=== PATIENT | male | born 1960 | race Caucasian/White ===

== ENCOUNTER 2018-10-08 10:57 | Day surgery (SDC) | payer OTHER ==
[~2018-10-08 10:57] MED LIST: CEFAZOLIN 1G VIAL IVP ONE; CEFAZOLIN 2 Gram 2 GM/50 ML BAG IVPB ONE; MECLIZINE 25 MG TABLET PO ONE; VANCOMYCIN HCL 1,000 MG in DEXTROSE 5 % IN WATER 250 ML IVPB ONE; WATER STERILE FOR INJECTION 20 ML VIAL MC ONE
[2018-10-08] MEDS ORDERED: MIDAZOLAM HCL 2MG/2ML VIAL IV ONE ×2 (10:58)
[2018-10-08] MEDS ORDERED: TRANEXAMIC ACID 1,000 MG/10 ML ML IV ONE ×2 (10:58)
[2018-10-08] MEDS ORDERED: ROPIVACAINE HCL (NAROPIN) /PF 5MG/ML 20ML VIAL IV ONE (10:58)
[2018-10-08] MEDS ORDERED: DEXAMETHASONE 4 MG/ML 1ML VIAL IVP ONE (10:58)
[2018-10-08] MEDS ORDERED: KETAMINE HCL 100MG/1ML VIAL INJ ONE (10:58)
[2018-10-08] MEDS ORDERED: 0.9 % SODIUM CHLORIDE 10 ML VIAL IVP ONE (10:58)
[2018-10-08] MEDS ORDERED: GLYCOPYRROLATE 0.2 MG/ML ML IV ONE (10:58)
[2018-10-08] MEDS ORDERED: LIDOCAINE 2% MDV (20MG/ML) 20ML VIAL IV ONE (10:58)
[2018-10-08] MEDS: FAMOTIDINE 20MG TABLET PO ONE ×2 (11:30→11:38)
[2018-10-08] MEDS: METOCLOPRAMIDE 10 MG TABLET PO ONE ×4 (11:30→12:26)
[2018-10-08 12:07] LABS: ABO GROUP A; ANTIBODY SCREEN NEGATIVE (NEGATIVE); RH TYPE POSITIVE
[2018-10-08] MEDS: CELECOXIB 100 MG CAPSULE PO ONE ×2 (12:11→17:44)
[2018-10-08] MEDS ORDERED: RINGERS SOLUTION,LACTATED 1,000 ML IV ONE ×2 (14:08→14:51)
[2018-10-08] MEDS ORDERED: BUPIVACAINE 0.5% W/EPI MPF 30 ML VIAL SQ ONE (14:49)
[2018-10-08] MEDS ORDERED: CEFAZOLIN 1G VIAL IVP ONE (14:50)
[2018-10-08] MEDS ORDERED: DIPHENHYDRAMINE HCL 25 MG CAPSULE PO PRN (15:53)
[2018-10-08] MEDS ORDERED: KETOROLAC 30 MG/ML VIAL IVP PRN ×2 (15:53)
[2018-10-08] MEDS ORDERED: MAGNESIUM HYDROXIDE 30 ML UDC PO PRN (15:53)
[2018-10-08] MEDS ORDERED: NALOXONE 0.4 MG/1 ML VIAL IVP PRN (15:53)
[2018-10-08] MEDS ORDERED: BISACODYL 10 MG SUPP RC PRN (15:53)
[2018-10-08] MEDS ORDERED: HYDROMORPHONE HCL 2 MG/ML VIAL IM PRN (15:53)
[2018-10-08] MEDS ORDERED: TRAMADOL HCL 50 MG TABLET PO PRN (15:53)
[2018-10-08] MEDS ORDERED: ZOLPIDEM TARTRATE 5 MG TABLET PO PRN (15:53)
[2018-10-08] MEDS ORDERED: ACETAMINOPHEN 325 MG TAB PO PRN (15:53)
[2018-10-08] MEDS ORDERED: ONDANSETRON HCL IV 4 MG/2 ML VIAL IVP PRN (15:53)
[2018-10-08] MEDS ORDERED: AL HYDROX/MAG HYDROX 30ML UD PO PRN (15:53)
[2018-10-08] MEDS ORDERED: ACETAMINOPHEN W/ CODEINE 300MG/60MG TABLET PO PRN ×2 (15:53)
[2018-10-08] MEDS ORDERED: CEFAZOLIN 2 Gram 2 GM/50 ML BAG IVPB SCH (16:00)
[2018-10-08] MEDS: HYDROCODONE/APAP 10/325 TABLET PO PRN ×2 (18:21→19:43)
[2018-10-08] MEDS: POTASSIUM CHLORIDE/D5-0.9%NACL 20 MEQ/1,000 ML BAG IV SCH (18:55)
[2018-10-08] MEDS ORDERED: PNEUM 23-VAL ADULT IM ONE (19:16)
[2018-10-08] MEDS: CEFAZOLIN 1G VIAL IVP SCH (22:17)
[2018-10-08] MEDS: DOCUSATE SODIUM 100 MG CAPSULE PO SCH (22:23)
[2018-10-08] MEDS: METFORMIN 500 MG TABLET PO SCH (22:24)
[2018-10-09] MEDS: HYDROCODONE/APAP 10/325 TABLET PO PRN ×2 (03:24→10:31)
[2018-10-09] MEDS: POTASSIUM CHLORIDE/D5-0.9%NACL 20 MEQ/1,000 ML BAG IV SCH ×2 (03:25→10:33)
[2018-10-09] MEDS: CEFAZOLIN 1G VIAL IVP SCH ×2 (05:45→11:45)
[2018-10-09 08:28] LABS: HEMATOCRIT 41.7 % (42.0-52.0); HEMOGLOBIN 13.7 gm/dl (14.0-18.0)
[2018-10-09 08:49] LABS: BLOOD UREA NITROGEN 12 mg/dL (6-20); CREATININE 0.7 mg/dL (0.7-1.2); EST GLOMERULAR FILTRATION RATE > 60 mL/min; GLUCOSE,RANDOM 168 mg/dL (74-109)
[2018-10-09] MEDS ORDERED: RIVAROXABAN 10 MG TABLET PO SCH (10:00)
[2018-10-09] MEDS ORDERED: MULTIVITAMINS/MINERALS TABLET PO SCH (10:00)
[2018-10-09] MEDS ORDERED: LISINOPRIL 5 MG TABLET PO SCH (10:00)
[2018-10-09] MEDS ORDERED: METOPROLOL SUCC 25 MG TAB.ER PO SCH (10:00)
[2018-10-09] MEDS ORDERED: FERROUS SULFATE 325 MG TAB PO SCH (10:00)
[2018-10-09] MEDS ORDERED: SIMVASTATIN 20 MG TABLET PO SCH (10:00)
[2018-10-09] MEDS ORDERED: ASPIRIN 325 MG TAB ENTERIC-COATED PO SCH (10:00)
[2018-10-09] MEDS: METFORMIN 500 MG TABLET PO SCH (10:32)
[2018-10-09] MEDS: DOCUSATE SODIUM 100 MG CAPSULE PO SCH (10:32)
--- NOTE | 2018-10-09 11:25 | Rehab Evaluation ---
Patient Information - Patient Information Diagnosis: OA L knee Ordered Treatment: OT Evaluate and Treat Status: Initial Evaluation Surgery: Yes (L TKA) Date of Surgery: 10/08/18 Past Medical/Surgical Hx: PAST MEDICAL/SURGICAL HISTORY Past Surgical History ORIF LEFT ANKLE HERNIA REPAIRS RIGHT SHOULDER X'S 2 TONSILS C SCOPES CARDIAC CATH PMH - Respiratory Hx Respiratory Disorders Yes Hx Pneumonia Yes: 3 YRS AGO Hx Sleep Apnea Yes Hx of CPAP No Comment: HAD INFLUENZA A 2 WEEKS AGO RESOLVED PMH - Cardiovascular Hx Cardiovascular Disorders Yes Hx Abnormal EKG Yes Hx Cardiac Catheterization Yes: 2010 FALSE POSITIVE FROM IODINE USED DURING STRESS TEST Hx Chest Pain No Hx Hypertension Yes: CONTROLLED WITH MEDS Exercise Tolerance Good Comment: VERY ACTIVE JOB PMH - Neuro Hx Neurological Disorders No PMH - GI Hx Gastrointestinal Disorders No Hx Weight Loss/Weight Gain Yes: TOTAL LOSS 80 LBS OVER LAST COUPLE OF YEARS PMH - Hx Genitourinary Disorders No PMH - Endocrine Hx Endocrine Disorders Yes Hx Diabetes Yes: DX'D 8 YEARS AGO Hx of NIDDM Yes Comment: BLOOD SUGARS AROUND 110 A1C 6 PMH - Musculoskeletal Hx Musculoskeletal Disorders Yes Hx Arthritis Yes: KNEES SHOULDERS AND HANDS PMH - Psych Hx Psychiatric Problems No PMH - Hematology/Oncology Hx Hematology/Oncology Yes Disorders Hx Bruising Yes: BRUISES EASILY WHEN ON ASA Premorbid Status: Detail (Pt is a 58 y/o M with elective TKA. Indep with all I/ADLS prior to admit and was ambulating without device. Pt lives in a 2-story home with 1 step to enter without a rail and a basement bedroom and bathroom. His bathroom is equipped with an elevated toilet seat and tub/shower with shower chair, however Pt reports he will be showering at his daughter's home with a fully accessible bathroom upon DC. Pt owns a FWW.) Social History: Detail Precautions: [place], [place], Other (WBAT L LE) - Time With Patient Total Time Spent With Patient (Min): 25 (1 eval) Treatment Procedures: Detail (ot eval: low complexity) Subjective Information - Subjective Information Per Patient (ok to see per ANA Markham. Pt agreeable to OT eval.) Objective Data - Pain Pain Present: Yes Pain Scale Used: Numeric (1 - 10) ("hardly any" per Pt, not quantified) - Mental Status Patient Orientation: Oriented x3 - Visual Perception Appears within normal limits for therapeutic activities - ROM Within normal limits (R shoulder Sx x3, functional strength and ROM) - Strength/Tone Within normal limits - Coordination Appears within normal limits for therapeutic activities - Bed Mobility Independent (supine > EOB) - Transfers Independent (sit >< stand from low surfaces to FWW with good safety awareness and use of FWW) - Balance Balance Sitting: Good Balance Standing: Good - Sensation Intact - Gait Detail (Functional ambulation within bedroom with FWW and supervision progressing to indep.) - ADL's/IADL's Detail (OT educ. Pt on adaptive tech for LB dressing, Pt demos independence to don/doff brief in sitting position, reports his will assist with socks and shoes, denies educ. on AE. Educ. Pt on mod techs for kitchen, laundry, and bathroom safety at home, Pt verbalizes understanding.) Therapy Assessment - Therapy Assessment Detail (Pt demos safety and indep. with LB dressing and verbalizes safe tech for home tasks, good safety awareness throughout session. Rec DC home with spouse assist PRN when medically appropriate.) Problem List - Problem List Occupational Therapy Problem List: Detail (No further OT needs identified.) Goals - Goals Occupational Therapy Goals: No further inpatient OT needs/goals identified. DC inpatient OT. Prognosis - Prognosis Good Plan - Plan Occupational Therapy Plan: No further inpatient OT needs/goals identified. [place] inpatient OT services.
--- NOTE | 2018-10-09 15:34 | Rehab Evaluation ---
Patient Information - Patient Information Diagnosis: OA L knee Ordered Treatment: PT Evaluate and Treat Status: Initial Evaluation Surgery: Yes (L TKA) Date of Surgery: 10/08/18 Past Medical/Surgical Hx: PAST MEDICAL/SURGICAL HISTORY Past Surgical History ORIF LEFT ANKLE HERNIA REPAIRS RIGHT SHOULDER X'S 2 TONSILS C SCOPES CARDIAC CATH PMH - Respiratory Hx Respiratory Disorders Yes Hx Pneumonia Yes: 3 YRS AGO Hx Sleep Apnea Yes Hx of CPAP No Comment: HAD INFLUENZA A 2 WEEKS AGO RESOLVED PMH - Cardiovascular Hx Cardiovascular Disorders Yes Hx Abnormal EKG Yes Hx Cardiac Catheterization Yes: 2010 FALSE POSITIVE FROM IODINE USED DURING STRESS TEST Hx Chest Pain No Hx Hypertension Yes: CONTROLLED WITH MEDS Exercise Tolerance Good Comment: VERY ACTIVE JOB PMH - Neuro Hx Neurological Disorders No PMH - GI Hx Gastrointestinal Disorders No Hx Weight Loss/Weight Gain Yes: TOTAL LOSS 80 LBS OVER LAST COUPLE OF YEARS PMH - Hx Genitourinary Disorders No PMH - Endocrine Hx Endocrine Disorders Yes Hx Diabetes Yes: DX'D 8 YEARS AGO Hx of NIDDM Yes Comment: BLOOD SUGARS AROUND 110 A1C 6 PMH - Musculoskeletal Hx Musculoskeletal Disorders Yes Hx Arthritis Yes: KNEES SHOULDERS AND HANDS PMH - Psych Hx Psychiatric Problems No PMH - Hematology/Oncology Hx Hematology/Oncology Yes Disorders Hx Bruising Yes: BRUISES EASILY WHEN ON ASA Premorbid Status: Detail (Pt is a 58 y/o M with elective TKA. Indep with all I/ADLS prior to admit and was ambulating without device. Pt lives in a 2-story home with 1 step to enter without a rail and a basement bedroom and bathroom. His bathroom is equipped with an elevated toilet seat and tub/shower with shower chair, however Pt reports he will be showering at his daughter's home with a fully accessible bathroom upon DC. Pt owns a FWW.) Social History: Detail Precautions: [place], Fall, Other (WBAT L LE) - Time With Patient Total Time Spent With Patient (Min): 30 Treatment Procedures: Detail (Initial Evaluation, gait training) Subjective Information - Subjective Information Per Patient (The patient had complaints of L knee pain level 5 using 0-10 pain scale.) Objective Data - Mental Status Patient Orientation: Oriented x3 - Visual Perception Appears within normal limits for therapeutic activities - ROM Not within normal limits (The patient's L knee AROM was limited s/p surgery. All other AROM was WNL.) - Strength/Tone Not within normal limits (The patient's L LE strength was not tested s/p surgery however was functional ie: patient could complete a SLR. The patient's R LE strength was WNL.) - Bed Mobility Independent (The pt. was independent with supine to and from sit transfer and scooting up in bed.) - Transfers Independent (The patient was independent with sit to and from stand transfer.) - Balance Balance Sitting: Good Balance Standing: Good - Gait Detail (The patient ambulated with front wheeled walker a distance of 134 feet x 1 WBAT on the L LE independently. The patient ambulated on 3 stairs with use of railing and folded walker uisng proper technique with supervision for safety.) Therapy Assessment - Therapy Assessment Detail (The patient was independent with bed mobility, transfers and ambulation. The patient is discharged from inpatient PT and is to continue with Home PT.) Patient Education - Patient Education Teaching Topic: Exercise/Activity (The patient was independent with TKA HEP including heel slides, SLR, ankle pumps, gluteal sets, quad sets, hamstring sets.) Response: Return Demonstration Teaching Method: Demonstration, Handout Teaching Recipient: Patient Barriers To Learning: None Problem List - Problem List Physical Therapy Problem List: Detail (All inpatient PT goals have been met.) Occupational Therapy Problem List: Detail (No further OT needs identified.) Goals - Goals Occupational Therapy Goals: No further inpatient OT needs/goals identified. [place] inpatient OT. Prognosis - Prognosis Good Plan - Plan Physical Therapy Plan: The patient was discharged from inpatient PT and is to continue with Home PT. Occupational Therapy Plan: No further inpatient OT needs/goals identified. DC inpatient OT services.
--- NOTE | 2018-10-11 14:37 | Operative Note ---
DATE OF SERVICE: 10/08/2018. DATE OF SURGERY: 10/08/2018. PREOPERATIVE DIAGNOSIS: End-stage arthrosis of the left knee. POSTOPERATIVE DIAGNOSIS: End-stage arthrosis of the left knee. OPERATION: Cemented left total knee arthroplasty using [employer] components, with a size 7 Oxinium Jimena II femoral component, a size 7 stemmed tibial baseplate, a 9 mm lipped high-crosslinked tibial insert, and a 35 mm all plastic patella. SURGEON: Juan Cassidy MD. ANESTHESIA: Spinal. PREPARATION: ChloraPrep. INDIVIDUAL CONSIDERATIONS: None. PROCEDURE: Patient was taken to the operating room, placed supine on the operating room table. He had successful induction with spinal anesthetic. His left lower extremity was prepped and draped in the usual fashion. Patient had a midline approach to the knee. Limb was elevated. The tourniquet was inflated to 250 mmHg. Sharp dissection carried down through skin and subcutaneous tissue. Small veins were coagulated with a Bovie. A medial arthrotomy was performed, patella was everted and the knee was flexed. Patient had exposed bone in the medial and patellofemoral compartments with large osteophytes. ACL was sacrificed. Provisional anterior meniscectomies were performed, the capsule was released from the medial proximal tibia, and the fat pad was resected. The initial femoral missile control pilot hole was then made freehand. The intramedullary femoral cutting jig was placed. It was cut in 7.0 degrees of valgus and adjusted for rotation, secured with pins for a 10 mm resection. The initial transverse cut was then made. Skid guide was placed through the anterior and posterior missile control pilot holes. It was found that a size 7 would be appropriate. The anterior and posterior cuts followed by chamfer cuts were made, osteophytes removed, and a size 7 trial was placed and found to fit well. Tibia was brought forward. Remainder of the meniscal remnants were removed with the Bovie. The extraarticular tibial cutting jig was placed. It was cut in neutral with a 3 degree AP slope. It was set for a 9 mm resection keyed off the high lateral side, secured with pins. When cutting the tibia, care was taken to preserve the PCL insertion on the tibia. After removing medial osteophytes, I was able to easily fit a size 7. It was adjusted for rotation and secured with pins. With the 9 mm trial and femoral trial, there were excellent motion and stability. Ligamentous balance and rotational alignment were normal. Femoral missile control pilot holes were impacted, and the triflanged tibial stem was impacted, and these trial components were removed. Patient had a large patella, and roughly 9 mm of bone were removed freehand. I could easily fit a 35 patella, and the 3 missile control pilot holes were drilled. Tourniquet was let down briefly to get bleeders posteriorly, then placed back up again. The knee was then thoroughly irrigated out with pulsatile saline mixed with Ancef to remove visual and palpable debris. Bony surfaces were then dried. A size 7 stemmed tibial baseplate was cemented into place, followed by impaction of the 9 mm lipped tibial insert, followed by cementing in the size 7 Oxinium femur, followed by cementing in the 35 mm patella. Implant surfaces were compressed, excess cement was removed, and after the cement had set, there were excellent motion and stability. Ligamentous balance, rotational alignment, patellofemoral tracking were normal. No lateral release was required. Again, thorough irrigation. Tourniquet was let down. Hemostasis was obtained with a Bovie. The capsule was then closed with a running #2 Quill. Prior to this, I did infiltrate the subcutaneous tissue, skin, and periosteum with 30 mL of 0.5% Marcaine with epinephrine. The subcu was then closed with running 0 Quill. Skin was closed with wendy. Patient did receive a g of tranexamic acid preoperatively. I mixed a g of tranexamic acid with 30 mL of saline, injected into the knee through a sterile 18 gauge needle, and a sterile, bulky, compressive LONA-type dressing was applied. Patient tolerated the procedure well. Needle and sponge counts were correct. Estimated blood loss was 100 mL. We will check a hemoglobin in the morning. There were no complications. [facility]
== END 2018-10-09 12:45 | disposition home health service (06) ==
LOC: SUR 10:57 → MEDSURG 16:27 → SUR 10-09 12:45
PROVIDERS: ATTEND Orthopaedic Surgery
DX: M17.12 Unilateral primary osteoarthritis, left knee (principal); I10 Essential (primary) hypertension; E78.00 Pure hypercholesterolemia, unspecified; E11.9 Type 2 diabetes mellitus without complications
CPT/HCPCS: 36416; 76942; 80048; 82948; 85014; 85018; 86850; 86900; 86901; 90732; J0690; J3480; J3490; J7060; J7120

== ENCOUNTER 2018-11-19 09:09 | Day surgery (SDC) | payer OTHER ==
[~2018-11-19 09:09] MED LIST changes: +ACETAMINOPHEN 1,000 MG/100 ML BTL IVPB ONE; -CEFAZOLIN 1G VIAL IVP ONE; +CELECOXIB 100 MG CAPSULE PO ONE; +FAMOTIDINE 20MG TABLET PO ONE; +METOCLOPRAMIDE 10 MG TABLET PO ONE; +VANCOMYCIN 1GM/200ML PREMIX 1 GM/200 ML PIGGYBACK IVPB ONE; -VANCOMYCIN HCL 1,000 MG in DEXTROSE 5 % IN WATER 250 ML IVPB ONE; -WATER STERILE FOR INJECTION 20 ML VIAL MC ONE
[2018-11-19] MEDS ORDERED: EPHEDRINE SULFATE 50 MG/ML ML IV ONE (09:10)
[2018-11-19] MEDS ORDERED: FENTANYL PF 100MCG/2ML VIAL IV ONE (09:10)
[2018-11-19] MEDS ORDERED: TRANEXAMIC ACID 1,000 MG/10 ML ML IV ONE ×2 (09:10)
[2018-11-19] MEDS ORDERED: 0.9 % SODIUM CHLORIDE 10 ML VIAL IVP ONE (09:10)
[2018-11-19] MEDS ORDERED: LIDOCAINE 2% MDV (20MG/ML) 20ML VIAL IV ONE (09:10)
[2018-11-19] MEDS ORDERED: PROPOFOL 10 MG/ML VIAL IV ONE (09:10)
[2018-11-19] MEDS ORDERED: ROPIVACAINE HCL (NAROPIN) /PF 5MG/ML 20ML VIAL IV ONE (09:10)
[2018-11-19] MEDS ORDERED: DEXAMETHASONE 4 MG/ML 1ML VIAL IVP ONE (09:10)
[2018-11-19] MEDS ORDERED: MIDAZOLAM HCL 2MG/2ML VIAL IV ONE (09:10)
[2018-11-19] MEDS ORDERED: RINGERS SOLUTION,LACTATED 1,000 ML IV ONE ×3 (10:00→13:05)
[2018-11-19 10:10] LABS: ABO GROUP A; ANTIBODY SCREEN NEGATIVE (NEGATIVE); RH TYPE POSITIVE
[2018-11-19] MEDS ORDERED: BUPIVACAINE 0.5% W/EPI MPF 30 ML VIAL SQ ONE (11:27)
[2018-11-19] MEDS ORDERED: CEFAZOLIN IVPB ONE (11:31)
[2018-11-19] MEDS ORDERED: RINGERS LACTATED IVPB ONE (11:31)
[2018-11-19] MEDS ORDERED: AL HYDROX/MAG HYDROX 30ML UD PO PRN (13:01)
[2018-11-19] MEDS ORDERED: TRAMADOL HCL 50 MG TABLET PO PRN (13:01)
[2018-11-19] MEDS ORDERED: MAGNESIUM HYDROXIDE 30 ML UDC PO PRN (13:01)
[2018-11-19] MEDS ORDERED: DIPHENHYDRAMINE HCL 25 MG CAPSULE PO PRN (13:01)
[2018-11-19] MEDS ORDERED: ONDANSETRON HCL IV 4 MG/2 ML VIAL IVP PRN (13:01)
[2018-11-19] MEDS ORDERED: ZOLPIDEM TARTRATE 5 MG TABLET PO PRN (13:01)
[2018-11-19] MEDS ORDERED: KETOROLAC 30 MG/ML VIAL IVP PRN ×2 (13:01)
[2018-11-19] MEDS ORDERED: HYDROMORPHONE HCL 2 MG/ML VIAL IM PRN (13:01)
[2018-11-19] MEDS ORDERED: ACETAMINOPHEN 325 MG TAB PO PRN (13:01)
[2018-11-19] MEDS ORDERED: BISACODYL 10 MG SUPP RC PRN (13:01)
[2018-11-19] MEDS ORDERED: NALOXONE 0.4 MG/1 ML VIAL IVP PRN (13:01)
[2018-11-19] MEDS ORDERED: ACETAMINOPHEN W/ CODEINE 300MG/60MG TABLET PO PRN ×2 (13:01)
[2018-11-19] MEDS: POTASSIUM CHLORIDE/D5-0.9%NACL 20 MEQ/1,000 ML BAG IV SCH ×2 (15:25→23:11)
[2018-11-19] MEDS: HYDROCODONE/APAP 10/325 TABLET PO PRN ×3 (16:28→23:16)
--- NOTE | 2018-11-19 16:39 | Rehab Evaluation ---
Patient Information - Patient Information Diagnosis: R knee DJD Ordered Treatment: PT Evaluate and Treat Status: Initial Evaluation Surgery: Yes (R TKA) Date of Surgery: 11/19/18 Past Medical/Surgical Hx: PAST MEDICAL/SURGICAL HISTORY Past Surgical History LTKA ORIF LEFT ANKLE HERNIA REPAIRS RIGHT SHOULDER X'S 2 TONSILS C SCOPES CARDIAC CATH PMH - Respiratory Hx Respiratory Disorders Yes Hx Pneumonia Yes: 3 YRS AGO Hx Sleep Apnea Yes Hx of CPAP No Comment: HAD INFLUENZA A 2 WEEKS AGO RESOLVED PMH - Cardiovascular Hx Cardiovascular Disorders Yes Hx Abnormal EKG Yes Hx Cardiac Catheterization Yes: 2010 FALSE POSITIVE FROM IODINE USED DURING STRESS TEST Hx Chest Pain No Hx Hypertension Yes: CONTROLLED WITH MEDS Exercise Tolerance Good Comment: VERY ACTIVE JOB PMH - Neuro Hx Neurological Disorders No PMH - GI Hx Gastrointestinal Disorders No Hx Weight Loss/Weight Gain Yes: TOTAL LOSS 80 LBS OVER LAST COUPLE OF YEARS PMH - Hx Genitourinary Disorders No PMH - Endocrine Hx Endocrine Disorders Yes Hx Diabetes Yes: DX'D 8 YEARS AGO Hx of NIDDM Yes Comment: BLOOD SUGARS AROUND 110 A1C 6 PMH - Musculoskeletal Hx Musculoskeletal Disorders Yes Hx Arthritis Yes: KNEES SHOULDERS AND HANDS PMH - Psych Hx Psychiatric Problems No PMH - Hematology/Oncology Hx Hematology/Oncology Yes Disorders Hx Bruising Yes: BRUISES EASILY WHEN ON ASA Social History: Detail (The patient lives with spouse in a two story house with one step and no railing at the enterance. The patient is staying on the main floor following surgery. The bathroom is equipped with : a tub/shower combination, shower seat, elevated toilet seat and a riser seat with hand rails. The patient has a standard walker and standard cane.) Precautions: [place], Fall, Other (WBAT on the R LE.) - Time With Patient Total Time Spent With Patient (Min): 30 Treatment Procedures: Detail (Initial Evaluation low complexity, Gait training) Subjective Information - Subjective Information Per Patient (The patient had complaints of pain following ambulation but did not rate his pain using 0-10 pain scale.) Objective Data - Mental Status Patient Orientation: Oriented x3 - Visual Perception Appears within normal limits for therapeutic activities - ROM Not within normal limits (R knee AROM was limited s/p surgery. All other AROM was WFL.) - Strength/Tone Not within normal limits (The patient's R LE strength was not tested s/p however was functional ie: patient could lift LE in and out of bed. The patient's LE strength was WFL.) - Bed Mobility Independent (The patient was independent with supine to and from sit transfer and scooting up in bed.) - Transfers Independent (The patient was independent with sit to and from stand transfer.) - Balance Balance Sitting: Good Balance Standing: Good - Gait Detail (The patient ambulated with front wheeled walker WBAT on the R LE with supervision for safety only a distance of 75 feet x 1.) Therapy Assessment - Therapy Assessment Detail (The patient was independent with bed mobility and transfers and required supervision for safety only with ambulation. Feel the patient will progress well with mobility.) Problem List - Problem List Physical Therapy Problem List: Detail (Decreased R LE strength and AROM of R knee as to be expected following surgery.) Goals - Goals Physical Therapy Goals: 1) The patient will be independent with TKA HEP. 2) The patient will ambulate on stairs using proper technique with supervision for safety. 3) The patient will ambulate with appropriate assistive device household distances independently. Prognosis - Prognosis Good Plan - Plan Physical Therapy Plan: PT 1-2 sessions for gait training on levels and stairs and instruction in TKA HEP.
[2018-11-19] MEDS: CEFAZOLIN 2 Gram 2 GM/50 ML BAG IVPB SCH (17:59)
[2018-11-19] MEDS: DOCUSATE SODIUM 100 MG CAPSULE PO SCH (21:06)
[2018-11-19] MEDS: PATIENT OWN MED: METFORMIN 1000 MG PO SCH (21:07)
[2018-11-20] MEDS: CEFAZOLIN 2 Gram 2 GM/50 ML BAG IVPB SCH ×2 (02:34→11:12)
[2018-11-20] MEDS: POTASSIUM CHLORIDE/D5-0.9%NACL 20 MEQ/1,000 ML BAG IV SCH (05:12)
[2018-11-20] MEDS: HYDROCODONE/APAP 10/325 TABLET PO PRN ×2 (05:24→09:44)
[2018-11-20 06:30] LABS: HEMOGLOBIN 12.6 gm/dl (14.0-18.0)
[2018-11-20 06:44] LABS: BLOOD UREA NITROGEN 14 mg/dL (6-20); CREATININE 0.6 mg/dL (0.7-1.2); EST GLOMERULAR FILTRATION RATE > 60 mL/min; GLUCOSE,RANDOM 180 mg/dL (74-109)
--- NOTE | 2018-11-20 07:50 | Operative Note ---
DATE OF SURGERY: 11/19/2018 PREOPERATIVE DIAGNOSIS: Profound end-stage arthrosis of the right knee. POSTOPERATIVE DIAGNOSIS: Profound end-stage arthrosis of the right knee. OPERATION: Cemented right total knee arthroplasty using Bell [employer] Nephew Jimena II components with a size 7 Oxinium femur, a size 7 stemmed tibia baseplate, a 9 mm lipped highly crosslinked tibial insert, and a 35 mm all plastic patella. STAFF SURGEON: Juan Cassidy MD ANESTHESIA: Spinal. PREPARATION: Chloraprep. INDIVIDUAL CONSIDERATIONS: None. PROCEDURE: The patient was taken to the operating room, placed supine on the operating room table. He had a successful induction of a spinal anesthetic. The right lower extremity was prepped and draped in the usual fashion. The limb was elevated and tourniquet was inflated to 250 mmHg. The patient had a midline approach to the knee. Sharp dissection carried down through skin and subcutaneous tissue. Small veins were coagulated with a Bovie. A medial arthrotomy was performed. The patella was everted and the knee was flexed. The patient had exposed bone throughout. Fat pad was resected, ACL was sacrificed, and provisional anterior meniscectomies were performed. The capsule was released from the medial proximal tibia. The initial femoral airline transport pilot hole was then made freehand. The intramedullary femoral cutting jig was placed. It was cut in 7.0 degrees of valgus and adjusted for rotation and secured with pins for a 10 mm resection. The initial transverse cut was then made. The skin guide was placed in the anterior and posterior airline transport pilot holes. It was found that a size 7 would be appropriate but I had to translate it anteriorly 2 mm. The anterior and posterior cuts were made. Osteophytes removed, and a size 7 trial was placed and found to fit well. The tibia was brought forward, and the remainder of the meniscal remnants removed with a Bovie. The extraarticular tibial cutting jig was placed. It was cut in neutral with a 3-degree AP slope. It was set for a 9 mm resection keyed off the high lateral side and secured with pins. When cutting the tibia, care was taken to preserve the PCL insertion on the tibia. The patient had large osteophytes removed, and after removing them, I was able to fit a size 7 baseplate. It was adjusted for rotation and secured with pins. Using a 9 mm trial and femoral trial, there was excellent motion and stability, ligamentous balance, and rotation alignment were thought to be normal. Femoral airline transport pilot holes were impacted and tri-flange tibial stamp was impacted, and these trial components were removed. The patient had a huge patella and roughly 9 mm of bone was removed freehand. I was easily able to fit a 35 patella. The 3 airline transport pilot holes were drilled. The tourniquet was let down briefly to get bleeders posteriorly and then placed back up again. The knee was then thoroughly irrigated out with saline mixed with Ancef to remove any visual or palpable debris. Bony surfaces were then dried. A size 7 stemmed tibia baseplate was cemented into place followed by impaction of the 9 mm lipped highly crosslinked tibial insert followed by cementing in the size 7 Oxinium femur followed by cementing in the 35 mm patella. The implant surfaces were compressed, excess cement was removed. After the cement had set, there was excellent motion and stability, ligamentous balance, rotation alignment, and patellofemoral tracking were normal. No lateral release was required. Thorough irrigation again. Tourniquet was let down. Hemostasis was obtained with a Bovie. The capsule and the subcu were then infiltrated with 30 mL of 0.5% Marcaine with epinephrine. The capsule was then closed with a running #2 quill, subcu was closed in layers with running 0 quill, skin was closed with wendy. Then 1 g of tranexamic acid was mixed with 30 mL of saline and injected into the knee through a sterile 18-gauge needle, and a sterile bulky compressive LONA-type dressing was applied. The patient tolerated the procedure well. Needle and sponge counts were correct. Estimated blood loss was minimal, and he was taken back to recovery in good condition. There were no complications. JAMES
[2018-11-20] MEDS: DOCUSATE SODIUM 100 MG CAPSULE PO SCH (09:22)
[2018-11-20] MEDS: PATIENT OWN MED: METFORMIN 1000 MG PO SCH (09:23)
[2018-11-20] MEDS ORDERED: FERROUS SULFATE 325 MG TAB PO SCH (10:00)
[2018-11-20] MEDS ORDERED: FISH OIL PO SCH (10:00)
[2018-11-20] MEDS ORDERED: PATIENT OWN MED: LOVASTATIN 40 MG PO SCH (10:00)
[2018-11-20] MEDS ORDERED: PATIENT OWN MED: METOPROLOL SUCCINATE 50 MG PO SCH (10:00)
[2018-11-20] MEDS ORDERED: ASPIRIN 325 MG TAB ENTERIC-COATED PO SCH (10:00)
[2018-11-20] MEDS ORDERED: RIVAROXABAN 10 MG TABLET PO SCH (10:00)
[2018-11-20] MEDS ORDERED: PATIENT OWN MED: MULTIVITAMIN PO SCH (10:00)
[2018-11-20] MEDS ORDERED: FARXIGA 10 MG PO SCH (10:00)
[2018-11-20] MEDS ORDERED: LISINOPRIL 2.5 MG PO SCH (10:00)
--- NOTE | 2018-11-20 11:01 | Physical Therapy Tx Note ---
Physical Therapy Tx Note - Treatment Note Tolerated: Good Total Time Spent With Patient: 25 Physical Therapy Tx Note: Detail (Pt was laying in bed when PT arrived. Patient had no complaints of pain. Pt was able to transfer from sit to stand independently. Pt ambulated 134 ft with four point walker independent with weight beaing as tolerated on R. Pt descended and ascended 3 steps with use of handrail and walker for support with supervision. Pt was able to go to the b athroom independently. Pt was educated on TKA HEP ankle pumps, SLR, quad set, hamstring set, glute set, and seated heel slides. Pt was left in bed with call light. The patient has met all inpatient PT goals.) Physical Therapy Problem List: Detail (Decreased R LE strength and AROM of R knee as to be expected following surgery.) Physical Therapy Goals: 1) The patient will be independent with TKA HEP (goal met). 2) The patient will ambulate on stairs using proper technique with supervision for safety. (goal met). 3) The patient will ambulate with appropriate assistive device household distances independently. (goal met) Prognosis: Good Physical Therapy Plan: Patient has met all inpatient PT goals and is discharged from inpatient PT. Patient will continue with Home PT.
--- NOTE | 2018-11-20 11:05 | Rehab Evaluation ---
Patient Information - Patient Information Diagnosis: R knee OA Ordered Treatment: OT Evaluate and Treat Status: Initial Evaluation Surgery: Yes (R TKA) Date of Surgery: 11/19/18 Past Medical/Surgical Hx: PAST MEDICAL/SURGICAL HISTORY Past Surgical History LTKA ORIF LEFT ANKLE HERNIA REPAIRS RIGHT SHOULDER X'S 2 TONSILS C SCOPES CARDIAC CATH PMH - Respiratory Hx Respiratory Disorders Yes Hx Pneumonia Yes: 3 YRS AGO Hx Sleep Apnea Yes Hx of CPAP No Comment: HAD INFLUENZA A 2 WEEKS AGO RESOLVED PMH - Cardiovascular Hx Cardiovascular Disorders Yes Hx Abnormal EKG Yes Hx Cardiac Catheterization Yes: 2010 FALSE POSITIVE FROM IODINE USED DURING STRESS TEST Hx Chest Pain No Hx Hypertension Yes: CONTROLLED WITH MEDS Exercise Tolerance Good Comment: VERY ACTIVE JOB PMH - Neuro Hx Neurological Disorders No PMH - GI Hx Gastrointestinal Disorders No Hx Weight Loss/Weight Gain Yes: TOTAL LOSS 80 LBS OVER LAST COUPLE OF YEARS PMH - Hx Genitourinary Disorders No PMH - Endocrine Hx Endocrine Disorders Yes Hx Diabetes Yes: DX'D 8 YEARS AGO Hx of NIDDM Yes Comment: BLOOD SUGARS AROUND 110 A1C 6 PMH - Musculoskeletal Hx Musculoskeletal Disorders Yes Hx Arthritis Yes: KNEES SHOULDERS AND HANDS PMH - Psych Hx Psychiatric Problems No PMH - Hematology/Oncology Hx Hematology/Oncology Yes Disorders Hx Bruising Yes: BRUISES EASILY WHEN ON ASA Premorbid Status: Detail (Prior to Sx, Pt was independent with all ADLs and func tional mobility. Pt with recent L TKA, per Pt - recovered well with some residual stiffness, no longer using his standard walker. Pt lives with and 4 dogs in a home with 1 step to enter without hand rails. Pt's main bed/bath are in the basement, however he plans to stay on the main floor 1-2 wks at [place]. He has a tub/shower, tub TF bench, and raised toilet seat with grab bars. He also has a standard walker and a press puller.) Precautions: [place], Fall, Other (WBAT R LE.) - Time With Patient Total Time Spent With Patient (Min): 35 (1 eval) Treatment Procedures: Detail (OT eval: low complexity) Objective Data - Pain Pain Present: Yes Pain Scale Used: Numeric (1 - 10) (2/10) - Mental Status Patient Orientation: Oriented x3 - Visual Perception Appears within normal limits for therapeutic activities - ROM Within normal limits - Strength/Tone Within normal limits - Coordination Appears within normal limits for therapeutic activities - Bed Mobility Independent (supine >< EOB) - Transfers Independent (sit >< stand from low surface to FWW, no safety concerns) - Balance Balance Sitting: Good Balance Standing: Good - Sensation Intact - Gait Detail (Functional mobility within bedroom with FWW, no safety concerns.) - ADL's/IADL's Detail (OT educated Pt on modified tech for LB dressing, Pt demos understanding and good follow thru. Pt uses toilet with good balance during standing pant mgmt. Pt verbalizes understanding re: car and tub TF and reports no concerns. Pt reports his will assist with tedhose and verbalizes understanding on techniques to don/doff with increased ease.) Therapy Assessment - Therapy Assessment Detail (Pt demos mod I with LB dressing, verbalizes safe technique for home tasks and functional mobility with good safety awareness and FWW.) Patient Education - Patient Education Teaching Topic: Equipment Use Response: Return Demonstration, Verbalize Understanding Teaching Method: Discussion, Demonstration Teaching Recipient: Patient Barriers To Learning: None Problem List - Problem List Physical Therapy Problem List: Detail (Decreased R LE strength and AROM of R knee as to be expected following surgery.) Occupational Therapy Problem List: Detail (No further OT needs identified.) Goals - Goals Physical Therapy Goals: 1) The patient will be independent with TKA HEP. 2) The patient will ambulate on stairs using proper technique with supervision for safety. 3) The patient will ambulate with appropriate assistive device household distances independently. Occupational Therapy Goals: No further OT needs/goals identified. Prognosis - Prognosis Good Plan - Plan Physical Therapy Plan: PT 1-2 sessions for gait training on levels and stairs and instruction in TKA HEP. Occupational Therapy Plan: No further OT needs/goals identified - DC IP OT.
== END 2018-11-20 13:25 | disposition home health service (06) ==
LOC: SUR 09:09 → MEDSURG 13:45 → SUR 11-20 13:25
PROVIDERS: ATTEND Orthopaedic Surgery
DX: M17.11 Unilateral primary osteoarthritis, right knee (principal); E11.9 Type 2 diabetes mellitus without complications; I10 Essential (primary) hypertension; E78.00 Pure hypercholesterolemia, unspecified; Z98.61 Coronary angioplasty status
CPT/HCPCS: 36416; 76942; 80048; 82948; 85014; 85018; 86850; 86900; 86901; 97110; 97530; J0690; J1885; J3370; J3480; J7120